=== PATIENT | female | born 1950 | race Caucasian/White ===

== ENCOUNTER → 2016-07-16 | Outpatient (CLI) | payer BC ==
[~2016-07-16] MED LIST: CARDIZEM CD180 MG PO; MICARDIS HCT 41 EACH PO; NORCO 5-325 TA1 EACH PO; PRILOSEC40 MG PO; PROTONIX40 M2 PO; SIMVASTATIN80 MG PO; SYNTHROID112 MCG PO
== END ==
LOC: RAD 01:10
DX: N63 Unspecified lump in breast (principal)

== ENCOUNTER → 2019-06-15 | Outpatient (CLI) | payer OTHER | LOC: CAT 08:05 | DX: K76.0 Fatty (change of) liver, not elsewhere classified (principal); K57.32 Diverticulitis of large intestine without perforation or abscess without bleeding; M47.815 Spondylosis without myelopathy or radiculopathy, thoracolumbar region; K57.30 Diverticulosis of large intestine without perforation or abscess without bleeding ==

== ENCOUNTER 2020-01-04 20:01 | Emergency (ER) | payer OTHER ==
[~2020-01-04] VITALS: Ht 160 cm; Wt 113.4 kg
[~2020-01-04 20:01] MED LIST changes: -SYNTHROID112 MCG PO; +SYNTHROID150 MCG PO
[2020-01-04] MEDS ORDERED: MONTELUKAST SODI4 M1 PO (20:35)
[2020-01-04] MEDS ORDERED: BUPROPION HCL100 MG PO (20:35)
[2020-01-04 20:52] LABS: ANION GAP 12 mmol/L (7-16); BUN 12 mg/dL (7-18); CALCIUM 8.3 mg/dL (8.5-10.1); CHLORIDE 100 mmol/L (98-107); CO2 25 mmol/L (21-32); CREATININE 0.8 mg/dL (0.6-1.0); GLUCOSE 175 mg/dL (74-106); POTASSIUM 3.9 mmol/L (3.5-5.1); SODIUM 137 mmol/L (136-145)
[2020-01-04 20:53] LABS: BASOPHILS 0.7 % (0.0-2.0); EOSINOPHILS 0.6 % (0.0-3.0); HEMATOCRIT 41.6 % (37.0-47.0); HEMOGLOBIN 14.5 gm/dL (12.0-15.0); LYMPHOCYTES 19.2 % (24.0-44.0); MCH 32.1 pg (26.0-34.0); MCHC 34.8 g/dL (28.0-37.0); MCV 92.2 fL (80.0-100.0); MONOCYTES 5.9 % (1.0-8.0); PLATELET COUNT 211 thou/uL (150-400); POLYS 73.6 % (36.0-66.0); RBC 4.51 mil/uL (4.20-5.00); RDW 13.6 % (10.5-14.5); WBC 9.5 thou/uL (4.0-11.0)
[2020-01-04 21:02] LABS: ALBUMIN 3.4 g/dL (3.4-5.0); SGOT 32 U/L (15-37); SGPT 27 U/L (30-65); TOTAL BILIRUBIN 0.9 mg/dL (0.2-1.0); TOTAL PROTEIN 6.9 g/dL (6.4-8.2); TROPONIN-I <0.06 ng/mL (<0.06)
[2020-01-05] MEDS ORDERED: MECLIZINE HCL25 M1 PO (00:39)
[2020-01-05] MEDS ORDERED: VALIUM5 MG PO (00:39)
[2020-01-05 00:56] VITALS: BP 163/67
--- NOTE | 2020-01-05 07:44 | EKG ---
[facility] [place] [address] ELECTROCARDIOGRAM REPORT Name: JOAO DUNNE Room #: [facility] [id number] Admission: 01/04/20 Attend Phys: Discharge: 01/05/20 Date of : 54 Report #: [id number] THIS REPORT FOR: cc: Addison Carson Steven F. DO Santiago, Patrick MD [facility] ~ THIS REPORT FOR: //name// [facility] ED Test Date: 2020-01-04 Test Time: 21:05:00 Pat Name: JOAO DUNNE Department: Room: [facility]: F [facility] 1950 Requested By: Martin Rebollar Order Number: [id number] MD: Navid Smith Measurements Intervals [place] Rate: 60 P: 7 NH: 208 QRS: -23 QRSD: 113 T: 28 QT: 422 QTc: 422 Interpretive Statements Sinus rhythm Borderline intraventricular conduction delay Low voltage, precordial leads Nonspecific T abnormalities, anterior leads Compared to ECG 07/09/2007 03:48:20 Low QRS voltage now present T-wave abnormality still present Electronically Signed On 01-05-2020 7:44:02 CDT by Navid Smith [email or web address] <ELECTRONICALLY SIGNED> By: Navid Smith MD, FAC 01/05/20 0744 04 04 Navid Smith MD, FAC /EPI
== END 2020-01-05 00:57 | disposition home or self-care (01) ==
LOC: ER 20:01
PROVIDERS: Emergency Medicine
DX: R42 Dizziness and giddiness (principal); R11.10 Vomiting, unspecified; I10 Essential (primary) hypertension; E11.9 Type 2 diabetes mellitus without complications; Z88.5 Allergy status to narcotic agent; Z88.6 Allergy status to analgesic agent; Z88.1 Allergy status to other antibiotic agents; Z88.2 Allergy status to sulfonamides; Z79.899 Other long term (current) drug therapy; Z90.710 Acquired absence of both cervix and uterus

== ENCOUNTER → 2021-03-15 | Outpatient (CLI) | payer OTHER ==
[~2021-03-15] MED LIST changes: +BUPROPION HCL100 MG PO; +MECLIZINE HCL25 M1 PO; +MONTELUKAST SODI4 M1 PO; +VALIUM5 MG PO
== END ==
LOC: RAD 13:27
PROVIDERS: ATTEND Neuromusculoskeletal Medicine & OMM
DX: M47.816 Spondylosis without myelopathy or radiculopathy, lumbar region (principal); M54.50 Low back pain, unspecified; G89.29 Other chronic pain